=== PATIENT | female | born 1980 | race African-American/Black ===

== ENCOUNTER 2018-03-13 21:29 | Emergency (ER) | payer SELFPAY ==
[~2018-03-13 21:29] MED LIST: ISOVUE-370 76%-LOCM 1 ML ONE
[2018-03-13 22:42] LABS: #Basophils 0.1 thou/uL (0.0-0.2); #Lymphocytes 2.8 thou/uL (1.20-3.40); #Monocytes 0.5 thou/uL (0.11-0.59); #Neutrophils 2.8 thou/uL (1.40-6.50); %Eosinophils 0.8 % (0.0-10.0); %Lymphocytes 44.6 % (21.0-51.0); %Monocytes 8.5 % (0.0-10.0); %Neutrophils 45.1 % (42.0-75.0); Hemoglobin 15.7 g/dL (12.0-16.0); Mean Corpuscular HGB CONC 34.9 g/dL (32.0-36.0); Mean Corpuscular Hemoglobin 34.2 pg (27.0-31.0); Mean Platelet Volume 7.2 fL (7.4-10.4); Platelet Count 302 thou/uL (130-400); Red Blood Cell (RBC) Count 4.59 mill/uL (4.20-5.40); White Blood Cell (WBC) Count 6.2 thou/uL (4.8-10.8)
[2018-03-13 22:46] LABS: Bilirubin Negative (Negative); Blood, Urine Negative (Negative); Clarity CLEAR (Clear); Glucose, Urine (Dipstick) Negative (Negative); Leukocyte Negative (Negative); Nitrite Negative (Negative); Pregnancy Test - Urine (BHCG) Negative (Negative); Pregu Control Background? CLEAR/WHITE (CLR/WHITE); Pregu Control Bar Appear? YES (CONTROL BAR); Protein, Urine (Dipstick) Negative (Neg-Trace); Urobilinogen 0.2 mg/dL (0.2-1.0); pH, Urine 5.5 (5.0-9.0)
[2018-03-13] MEDS ORDERED: Ketorolac Tromethamine 30 MG/ML VIAL ONE (23:02)
[2018-03-13 23:04] LABS: ALT (SGPT) 20 U/L (8-55); AST (SGOT) 24 U/L (5-34); Albumin 4.5 g/dL (3.5-5.0); Alkaline Phosphatase 64 U/L (40-150); Anion Gap 15 mmol/L (10-20); BUN (Urea Nitrogen) 13 mg/dL (7.0-18.7); Bilirubin, Total 0.7 mg/dL (0.2-1.2); Calc. Creatinine Clearance 0 mL/min (70-130); Carbon Dioxide 20 mmol/L (22-29); Chloride 105 mmol/L (98-107); Estimated GFR-MDRD 82; Globulin 3.6 g/dL (2.4-3.5); Glucose 81 mg/dL (70-105); Lipase 23 U/L (8-78); Potassium 3.9 mmol/L (3.5-5.1); Protein, Total 8.1 g/dL (6.0-8.3); Sodium 136 mmol/L (136-145)
--- NOTE | 2018-03-14 08:15 | CT ---
CT ABDOMEN WITH CONTRAST CT PELVIS WITH CONTRAST: DATE: 03/13/18 TIME: 2352 hours HISTORY: 37-year-old female with right lower quadrant abdominal pain. COMPARISON: None. TECHNIQUE: IV injection of iodinated contrast media: Administered. Oral contrast media: Not administered. FINDINGS: Because of the lack of visceral fat, and lack of oral contrast, it is difficult to identify the appen yelitza. There is a 2.0 x 1.5 cm right adnexal rim-enhancing lesion which is probably an enhancing ovaria n cyst. There is a small amount of free fluid in the cul-de-sac. There is an approximately 5.5 x 4.5 x 5.5 cm midline intrapelvic mass with heterogeneous enhancement. Urinary bladder, abdominal aorta, b ilateral kidneys, adrenals, pancreas, liver, and spleen are normal. Difficult to evaluate for colonic diverticulitis because of lack of visceral fat. No small bowel dilation. Lung bases are clear. No pn eumoperitoneum. IMPRESSION: 1. Appendix not visualized. 2. Heterogeneously enhancing 5.5 cm mass at midline within the posterior aspect of the pelvic cavity . It is presumed to be within the uterus, although this is not certain. It could be a uterine leiomyo ma (fibroid), although the appearance is not typical. Recommend pelvic and transvaginal ultrasound fo r further evaluation. [place] POS: [facility]O
--- NOTE | 2018-03-14 11:02 | ULT ---
PRELIMINARY REPORT/[facility]/EMERGENTY AFTER-HOURS PROCEDURE US Pelvis Complete, Transabdominal US Pelvis, Transvaginal US Duplex Arterial/Venous of the Pelvis, Complete CLINICAL HISTORY: 37 years old, female; Pain; Pelvic pain and other: Rlq TECHNIQUE: Real-time transabdominal and transvaginal pelvic ultrasound (complete) with image documentation. Pack svaginal imaging was used for better evaluation of the endometrium and adnexa. Real-time duplex ultra sound scan of the arterial and venous flow of the pelvis with color Doppler flow and spectral wavefor m analysis. COMPARISON: No relevant prior studies available. FINDINGS: Transabdominal ultrasound did not reveal detailed visualization of endometrium/uterus. Ovaries were a lso not visualized on transabdominal ultrasound. Therefore a transvaginal ultrasound was performed fo r further evaluation. Duplex ultrasound scan with color Doppler flow and spectral waveform analysis was also performed for evaluation of pelvic and ovarian blood flow and torsion. Uterus/cervix: Large uterine mass likely representing a fibroid measuring up to 5.8 cm. Endometrium measures 1.3 cm in thickness. Right ovary: No acute findings. No mass. Normal blood flow. No evidence of torsion. Left ovary: No acute findings. No mass. Normal blood flow. No evidence of torsion. Free fluid: Mild. IMPRESSION: Large uterine fibroid. Mildly thickened endometrium; correlate with menstrual cycle. Thank you for allowing us to participate in the care of your patient. Dictated and Authenticated by: Rudolph Mina MD 03/14/2018 2:36 AM Central Time ([place] & [place]) FINAL REPORT PELVIC ULTRASOUND: Date: 03/14/18 COMPARISON: None. HISTORY: Right lower quadrant pain. FINDINGS: I agree with the preliminary report given by [facility]. Images include endovaginal and transabdominal imag ing with color flow and spectral analysis of the ovaries. Uterus measures 9.9 x 5.8 x 6.8 cm. There is a large, heterogeneous mass in the posterior mid uterus, measuring 5.8 x 5.0 x 5.5 cm, suggesting a uterine fibroid. Endometrial stripe measures 1.3 cm in th ickness, within normal limits for a premenopausal female. Right ovary measures 4.5 x 2.0 x 2.4 cm. Left ovary measures 4.0 x 1.8 x 3.4 cm. Both ovaries demonst rate normal blood flow without evidence for mass. Small volume free fluid noted in the pelvic cul-de- sac. IMPRESSION: Large uterine fibroid. No evidence for ovarian mass or torsion. POS: POLO
== END 2018-03-14 01:46 | disposition home or self-care (01) ==
LOC: ERS 21:29
DX: D25.9 Leiomyoma of uterus, unspecified (principal)
CPT/HCPCS: 74177; 76856; 80053; 81003; 81025; 83690; 85025; 87086; 96361; 96374; 96375; J1885; J2270

== ENCOUNTER 2022-01-28 14:43 | Emergency (ER) | payer OTHER ==
[2022-01-28] MEDS ORDERED: Lorazepam 2 MG/ML VIAL ONE (15:59)
[2022-01-28 16:05] LABS: #Basophils 0.1 thou/uL (0.0-0.2); #Lymphocytes 1.7 thou/uL (1.20-3.40); #Monocytes 0.4 thou/uL (0.11-0.59); #Neutrophils 3.2 thou/uL (1.40-6.50); %Basophils 1.5 % (0.0-1.0); %Eosinophils 0.7 % (0.0-10.0); %Lymphocytes 31.1 % (21.0-51.0); %Monocytes 6.6 % (0.0-10.0); %Neutrophils 60.2 % (42.0-75.0); Hemoglobin 9.8 g/dL (12.0-16.0); Mean Corpuscular HGB CONC 30.8 g/dL (32.0-36.0); Mean Corpuscular Hemoglobin 24.8 pg (27.0-31.0); Mean Corpuscular Volume 80.8 fL (78.0-98.0); Mean Platelet Volume 8.3 fL (7.4-10.4); Platelet Count 511 thou/uL (130-400); RBC Distribution Width 20.6 % (11.5-14.5); Red Blood Cell (RBC) Count 3.94 mill/uL (4.20-5.40); White Blood Cell (WBC) Count 5.4 thou/uL (4.8-10.8)
[2022-01-28 16:20] LABS: BHCG - Serum Negative (NEGATIVE); Pregs Control Background? CLEAR/WHITE (CLR/WHITE); Pregs Control Bar Appear? YES (CONTROL BAR)
[2022-01-28 16:26] LABS: ALT (SGPT) 19 U/L (8-55); AST (SGOT) 25 U/L (5-34); Albumin 4.5 g/dL (3.5-5.0); Alkaline Phosphatase 65 U/L (40-110); Anion Gap 14 mmol/L (10-20); BUN (Urea Nitrogen) 9 mg/dL (7.0-18.7); Bilirubin, Total 0.6 mg/dL (0.2-1.2); Calc. Creatinine Clearance 0 mL/min (70-130); Carbon Dioxide 22 mmol/L (22-29); Chloride 104 mmol/L (98-107); Globulin 3.2 g/dL (2.4-3.5); Glucose 89 mg/dL (70-105); Potassium 3.1 mmol/L (3.5-5.1); Protein, Total 7.7 g/dL (6.0-8.3); Sodium 137 mmol/L (136-145)
[2022-01-28 16:29] LABS: Bilirubin Negative (Negative); Blood, Urine Negative (Negative); Clarity Clear (Clear); Glucose, Urine (Dipstick) Normal (Negative); Ketone, Urine Negative (Negative); Leukocyte Negative Leu/uL (Negative); Nitrite Negative (Negative); Protein, Urine (Dipstick) Negative (Neg-Trace); Specific Gravity, Urine 1.005 (1.002-1.036); Urobilinogen Normal mg/dL (Less than 2); pH, Urine 5.5 (5.0-9.0)
[2022-01-28 16:30] LABS: Acetaminophen Less than 10.0 mcg/mL (10.0-30.0); Alcohol Less than 10 mg/dL (Less than 10); Salicylate Less than 8.0 mg/dL (15.0-30.0)
[2022-01-28 16:36] LABS: Amphetamine Detected (NotDetected); Barbiturates Screen Not Detected (NotDetected); Benzodiazepine Screen Detected (NotDetected); Cocaine Metabolite Screen Not Detected (NotDetected); Methadone Not Detected (NotDetected); Methamphetamine Detected (NotDetected); Opiate Screen Not Detected (NotDetected); Oxycodone Screen Not Detected (NotDetected); Phencyclidine (PCP) Not Detected (NotDetected); THC/Cannabinoid Screen Not Detected (NotDetected); Tricyclic Screen Not Detected (NotDetected)
== END 2022-01-28 17:41 | disposition home or self-care (01) ==
LOC: ERS 14:43
DX: R00.0 Tachycardia, unspecified (principal); M79.605 Pain in left leg; F15.10 Other stimulant abuse, uncomplicated
CPT/HCPCS: 71045; 80053; 80306; 80307; 81003; 83735; 84443; 84484; 84703; 85025; 93005; 96374; J2060